=== PATIENT | male | born 1945 | race Caucasian/White ===

== ENCOUNTER → 2016-10-28 | Emergency (ER) | payer OTHER ==
[~2016-10-28] MED LIST: MECLIZINE HCL 25 MG TABLET (FP) ONE; MECLIZINE HCL 25 MG TABLET (FP) PO ONE
[2016-10-28 12:31] VITALS: BMI 28.7
--- NOTE | 2016-10-28 13:00 | PDOC ---
History of Present Illness - History of Present Illness Initial Comments: 10/28/16 13:04 The patient is a 71 year old male, with a significant past medical history of diabetes, who presents to the emergency department with right arm pain, dizziness and intermittent blurred vision with exertion for about a month. He states he woke up this morning when the right arm pain radiated to the right side of his neck to his posterior neck, which prompted him to come to the ED. The patient adds that he develops the pain in his right arm and neck after walking about a mile which he reports is new. He denies any chest pain at this time, however, reports dull, intermittent pain to his chest with exertion. He denies arm numbness to tingling. He also reports feeling dizzy which he describes as: room spinning feeling as if im drunk. He reports his vision becomes intermittently blurry, one eye at a time, which is alleviated when he closes one eye for a short period of time. He denies chest pain, shortness of breath, headache. He denies fever, chills, nausea, vomit, diarrhea and constipation. He denies dysuria, frequency, urgency and hematuria. Allergies: NKDA PCP - Dr. Osborne <Delaney Bush - Last Filed: 10/28/16 14:01> <Marina Felipe - Last Filed: 10/28/16 18:16> - General Chief Complaint: Lightheaded Stated Complaint: DIZZINESS, BODY ACHE Time Seen by Provider: 10/28/16 12:46 Past History <Delaney Bush - Last Filed: 10/28/16 14:01> - Past Medical History Diabetes: Yes GI Disorders: Yes (GERD, ULCER) HTN: Yes - Surgical History Appendectomy: Yes Cholecystectomy: Yes - Psycho/Social/Smoking Cessation Hx Anxiety: No Suicidal Ideation: No Smoking History: Former smoker Have you smoked in the past 12 months: No If you are a former smoker, when did you quit?: 38 YRS Information on smoking cessation initiated: No Hx Alcohol Use: Yes (SOCIAL) Drug/Substance Use Hx: No Substance Use Type: None <Marina Felipe - Last Filed: 10/28/16 18:16> - Past Medical History Allergies/Adverse Reactions: Allergies Allergy/AdvReac Type Severity Reaction Status Date / Time No Known Allergies Allergy Verified 10/28/16 12:31 Home Medications: Ambulatory Orders Fluticasone Prop 0.05% Nasal [Flonase -] 1 - 2 spray NS DAILY 01/11/16 Glipizide [Glipizide ER] 5 mg PO DAILY 01/11/16 Metformin HCl 1,000 mg PO DAILY 01/11/16 Ranitidine HCl [Zantac] 150 mg PO DAILY 01/11/16 Simvastatin [Zocor] 10 mg PO HS 01/11/16 Review of Systems - Review of Systems Able to Perform ROS?: Yes Comments:: 10/28/16 13:05 GENERAL/CONSTITUTIONAL: No fever or chills. No weakness. HEAD, EYES, EARS, NOSE AND THROAT: (+) intermittent blurred vision. No ear pain or discharge. No sore throat. CARDIOVASCULAR: No chest pain or shortness of breath. RESPIRATORY: No cough, wheezing, or hemoptysis. GASTROINTESTINAL: No nausea, vomiting, diarrhea or constipation. GENITOURINARY: No dysuria, frequency, or change in urination. MUSCULOSKELETAL: (+) right arm pain radiating to neck. No joint or muscle swelling or pain. No back pain. SKIN: No rash NEUROLOGIC: (+) vertigo, No headache, loss of consciousness, or change in strength/sensation. ENDOCRINE: No increased thirst. No abnormal weight change. HEMATOLOGIC/LYMPHATIC: No anemia, easy bleeding, or history of blood clots. ALLERGIC/IMMUNOLOGIC: No hives or skin allergy. <Delaney Bush - Last Filed: 10/28/16 14:01> *Physical Exam - Vital Signs Last Vital Signs Temp Pulse Resp BP Pulse Ox 70 20 117/72 98 10/28/16 12:27 10/28/16 12:27 10/28/16 12:27 10/28/16 12:27 <Delaney Bush - Last Filed: 10/28/16 14:01> - Vital Signs Last Vital Signs Temp Pulse Resp BP Pulse Ox 70 20 117/72 98 10/28/16 12:27 10/28/16 12:27 10/28/16 12:27 10/28/16 12:27 - Physical Exam Comments: GENERAL: Awake, alert, and fully oriented, in no acute distress HEAD: No signs of trauma EYES: PERRLA, EOMI, sclera anicteric, conjunctiva clear ENT: Auricles normal inspection, hearing grossly normal, nares patent, oropharynx clear without exudates. Moist mucosa NECK: Normal ROM, supple, no lymphadenopathy, JVD, or masses LUNGS: Breath sounds equal, clear to auscultation bilaterally. No wheezes, and no crackles HEART: Regular rate and rhythm, normal S1 and S2, no murmurs, rubs or gallops ABDOMEN: Soft, nontender, normoactive bowel sounds. No guarding, no rebound. No masses EXTREMITIES: Normal range of motion, no edema. No clubbing or cyanosis. No cords, erythema, or tenderness NEUROLOGICAL: Cranial nerves II through XII grossly intact. Normal speech, normal gait SKIN: Warm, Dry, normal turgor, no rashes or lesions noted. <Marina Felipe - Last Filed: 10/28/16 18:16> Heart Score/ECG Review - History History: Slightly suspicious - Electrocardiogram EKG: Normal - Age Age: >/= 65 - Risk Factors Risk Factors Heart Score: Yes Hx Hypercholesterolemia, Yes Hx Diabetes Based on the list above the patient has:: 1-2 risk factors - Troponin Troponin: </= normal limit - Score Heart Score - Total: 3 - ECG Impressions Comment:: EKG read 13:10- NSR 67 bpm, no acute ST/T changes <Marina Felipe - Last Filed: 10/28/16 18:16> ED Treatment Course - LABORATORY CBC & Chemistry Diagram: 10/28/16 13:15 10/28/16 13:15 - RADIOLOGY Radiograph Interpretation: 10/28/16 14:01 CXR was read by Dr. Rosario at 13:49 Impression: Large heart. hiatal hernia. no acute pathology. no change of an adverse nature since 01/11/16. <Delaney Bush - Last Filed: 10/28/16 14:01> - LABORATORY CBC & Chemistry Diagram: 10/28/16 13:15 10/28/16 13:15 <Marina Felipe - Last Filed: 10/28/16 18:16> Medical Decision Making - Medical Decision Making Pt with RUE pain that radiates from the posterior neck. This may be an atypical presentation of ACS, however, he notes that he takes a nightly walk, and typically the pain starts partway into his walk, but improves as he goes, does not worsen. 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 He had an episode of dizziness earlier today, resolved spontaneously. Unclear etiology at this point. HEART score is low, will discharge home with close outpatient f/u. <Marina Felipe - Last Filed: 10/28/16 18:16> *DC/Admit/Observation/Transfer - Attestations Scribe Attestion: 10/28/16 13:06 Documentation prepared by Delaney Bush, acting as medical interpreter for Marina Felipe MD, <Delaney Bush - Last Filed: 10/28/16 14:01> - Discharge Dispostion Admit: No <Marina Felipe - Last Filed: 10/28/16 18:16> Diagnosis at time of Disposition: Arm pain, right - Discharge Dispostion Disposition: HOME Condition at time of disposition: Stable - Patient Instructions Printed Discharge Instructions: DI for Arm Pain Additional Instructions: Follow up with your primary care physician THIS WEEK. If you develop chest pain , shortness of breath, or any other concerns, return to the ER immediately.
[2016-10-28 13:24] LABS: BASOPHIL 0.8 % (0-2.0); EOSINOPHIL 4.2 % (0-4.5); MCH 24.5 pg (25.7-33.7); MCHC 31.7 g/dl (32.0-35.9); MEAN CELL VOLUME 77.3 fl (80-96); MEAN PLT VOLUME 7.9 fl (7.5-11.1); NEUTROPHILS 65.2 % (42.8-82.8); PLATELET COUNT 296 K/MM3 (134-434); RDW 17.5 % (11.9-15.9); WHITE BLOOD COUNT 8.8 K/mm3 (4.0-10.0)
[2016-10-28 13:39] LABS: INR 0.99 (0.82-1.09); PROTHROMBIN TIME (PATIENT) 10.9 SEC (9.98-11.88)
[2016-10-28 14:02] LABS: ALBUMIN 3.6 g/dl (3.4-5.0); ANION GAP 9 (8-16); BILIRUBIN,TOTAL 0.3 mg/dL (0.2-1.0); CALCIUM 8.6 mg/dL (8.5-10.1); CO2 27 mmol/L (21-32); COCKROFT - GAULT 60.29; CREATININE 1.4 mg/dL (0.7-1.3); GLUCOSE,RANDOM 147 mg/dL (74-106); SGOT/AST 25 U/L (15-37); SGPT/ALT 25 U/L (12-78); TOT PROT 7.2 g/dl (6.4-8.2)
[2016-10-28 14:06] LABS: ALK PHOS 94 U/L (45-117); TROPONIN I < 0.02 ng/ml (0.00-0.05)
--- NOTE | 2016-10-28 16:23 | EKG ---
Test Reason : Blood Pressure : / mmHG Vent. Rate : 067 BPM Atrial Rate : 067 BPM P-R Int : 140 ms QRS Dur : 080 ms QT Int : 394 ms P-R-T Axes : 053 -33 024 degrees QTc Int : 416 ms NORMAL SINUS RHYTHM LEFT AXIS DEVIATION ABNORMAL ECG WHEN COMPARED WITH ECG OF 11-JAN-2016 21:37, NO SIGNIFICANT CHANGE WAS FOUND Confirmed by PAULO LAWRENCE MD ([id number]) on 10/28/2016 4:23:26 PM Referred By: EMERSON Confirmed By:PAULO LAWRENCE MD
[2016-10-28 16:52] VITALS: BP 118/73; PULSE 74; TEMP 98.6
== END | disposition home or self-care (01) ==
LOC: JER 12:25
DX: M79.601 Pain in right arm (principal); I10 Essential (primary) hypertension; E11.9 Type 2 diabetes mellitus without complications; Z79.84 Long term (current) use of oral hypoglycemic drugs; K21.9 Gastro-esophageal reflux disease without esophagitis
CPT/HCPCS: 36415; 71010-TC; 72050-TC; 80053; 82550; 82553; 84484; 85025; 85610; 93005; 93010; 99283-25

== ENCOUNTER 2018-07-27 13:22 | Emergency (ER) | payer OTHER ==
[2018-07-27 13:27] VITALS: BMI 27.5
--- NOTE | 2018-07-27 13:41 | PDOC ---
History of Present Illness - General Chief Complaint: Blood Pressure Problem Stated Complaint: HYPOTENSIVE Time Seen by Provider: 07/27/18 13:40 - History of Present Illness Initial Comments: 73yo M with PMH of HTN, DM, chronic R. arm pain presenting with hypotension. Patient reports he was feeling poorly two weeks ago, went to an urgent care, and was diagnosed with the flu. He was treated with tamiflu, but was still feeling poorly about 5 days ago and presented to his primary care doctor's office. Patient was given antibiotics (he does not know which) and finished the course today. He takes his blood pressure every day and has noticed it to be lower than his usual 120s systolic. When he was at his PCP office, he remarke upon his lower blood pressures and was instructed to check his blood pressure before taking his BP medicine. Patient was not told which BP measurement should necessitate taking lisinopril. His blood pressure last night was 127/77 and he took his lisinopril. This morning about a half hour after waking up and drinking coffee, patient noted his BP to be 77/47. He checked it several times and noted it to be lower than his normal and decided to come to the ED. Around that time, he also took his diabetes medicines, metformin and glipizide. He checks his glucose everyday and notes to have had 4-5 episodes of hypoglycemia for which he eats a snack. Patient endorses a 11 lb weight loss over the past month and a half which he attributes to a healthier diet. He has been making efforts to cook more at home for his . Endorses fever of 103 and 100 one week ago, as well as a resolving dry cough. He continues to have his chronic R. arm pain which radiates to his chest. Patient reports that he has had an extensive workup in the past year including stress test, ECHO, and cardiac catheterization which were all "normal." He remarks that he currently feels lightheaded. Denies chills, chest pain, shortness of breath, or abdominal pain. Past History - Past Medical History Allergies/Adverse Reactions: Allergies Allergy/AdvReac Type Severity Reaction Status Date / Time No Known Allergies Allergy Verified 07/27/18 13:28 Home Medications: Ambulatory Orders Fluticasone Prop 0.05% Nasal [Flonase -] 1 - 2 spray NS DAILY 01/11/16 Glipizide [Glipizide ER] 5 mg PO DAILY 01/11/16 Ranitidine HCl [Zantac] 150 mg PO DAILY 01/11/16 Simvastatin [Zocor] 10 mg PO HS 01/11/16 metFORMIN HCL [Metformin HCl] 1,000 mg PO DAILY 01/11/16 COPD: No Diabetes: Yes GI Disorders: Yes (GERD, ULCER) Disorders: Yes (enlarged prostate) HTN: Yes Hypercholesterolemia: Yes - Surgical History Appendectomy: Yes Cholecystectomy: Yes - Suicide/Smoking/Psychosocial Hx Smoking History: Never smoked Have you smoked in the past 12 months: No If you are a former smoker, when did you quit?: 38 YRS Hx Alcohol Use: Yes (SOCIAL) Drug/Substance Use Hx: No Substance Use Type: None Review of Systems - Review of Systems Comments:: Constitutional: +fever, no chills HEENT: no throat pain, no dysphagia Cardiovascular: no chest pain, no palpitations Respiratory: no cough, no shortness of breath Gastrointestinal: no nausea, no vomiting Genitourinary: no dysuria, no frequency Musculoskeletal: no back pain, + R. arm pain Skin: no rash, no itching Neurologic: no headache, +lightheaded *Physical Exam - Vital Signs Last Vital Signs Temp Pulse Resp BP Pulse Ox 97.3 F L 75 18 108/56 L 99 07/27/18 13:24 07/27/18 13:24 07/27/18 13:24 07/27/18 13:24 07/27/18 13:24 - Physical Exam Comments: General: Awake, alert, and fully oriented, in no acute distress, pleasant Head: No signs of trauma Eyes: EOMI, sclera anicteric ENT: Moist mucus membranes Neck: Normal ROM, supple Lungs: Lungs clear, Normal breath sounds Cardio: Regular rhythm, S1 and S2 present Abdomen: Soft, nontender. No guarding, no rebound, no masses Extremities: Normal range of motion, Distal pulses present SKIN: Warm, Dry, normal turgor Neurologic: Cranial nerves II through XII grossly intact. Normal speech. Moderate Sedation - Procedure Monitoring Vital Signs: Procedure Monitoring Vital Signs Temperature 97.3 F L 07/27/18 13:24 Pulse Rate 75 07/27/18 13:24 Respiratory Rate 18 07/27/18 13:24 Blood Pressure 108/56 L 07/27/18 13:24 O2 Sat by Pulse Oximetry (%) 99 07/27/18 13:24 ED Treatment Course - LABORATORY CBC & Chemistry Diagram: 07/27/18 14:57 07/27/18 14:57 Medical Decision Making - Medical Decision Making 73yo M with PMH of HTN, DM, chronic R. arm pain presenting with hypotension. Noted by Nurse Clay to be hypoglycemia at 43. Given orange juice. Patient's lightheadedness resolved. Repeat glc 80 DDX including but not limited to iatrogenic, anemia, infection, dehydration, orthostatic hypotension CBC, CMP, Tpn, EKG, CXR, UA, UCx 07/27/18 15:12 Patient had large lunch 5pm Glucose 143 6pm Glucose 145 No anemia or leukocytosis Tpn normal [id number] Cr elevated at 1.7 which is at patient's baseline UA negative for infection CXR without acute pathology EKG: rate 70, Qtc 416, NSR Given patient's recent weight loss, he may no longer require all his current home medicines. Patient's hypoglycemia likely due to the glipizide that he took this morning. He was instructed to eat and repeat glucose measurements were stable. Patient's hypoglycemia and hypertension likely due to iatrogenic reasons as well. Instructed to check his BP and taking home lisinopril if systolic>140. Also told patient to check glucose more frequently and not take glipizide until his PCP says otherwise. Patient will call his doctor tomorrow. *DC/Admit/Observation/Transfer Diagnosis at time of Disposition: Hypotension due to medication, Hypoglycemia - Discharge Dispostion Disposition: HOME Condition at time of disposition: Stable - Referrals Referrals: Nithin Reeves [Primary Care Provider] - - Patient Instructions Printed Discharge Instructions: DI for Hypoglycemia Additional Instructions: You came into the ED for low blood pressure. We checked your blood work, EKG, and an Xray. Your glucose levels were low while in the ED which is likely due to the diabetes medicine you have been taking. 1. Check your blood sugar every 2-3 hours when you get home. If it stays persistently low, below 80, despite eating/drinking, please return to the ED. 2. Take metformin as you regularly do. Stop taking glipizide until your doctor instructs otherwise. 3. Check your blood pressure before taking blood pressure medicine. If the systolic (top number) is over 140, you can take your blood pressure medicine. 4. Follow up with your primary care physician. You made need adjustments made to your medication. Call and make an appointment. Your care is not complete until you do so. A copy of your lab work and EKG were given to you. Bring this to your appointment. Immediate medical attention is required if you have: fever, weakness, incontinence, you pass out, or have any new or concerning symptoms. If you think you are having an emergency, call for emergency medical services or present to the emergency department right away. - Post Discharge Activity
--- NOTE | 2018-07-27 13:55 | PDOC ---
Attending Attestation - HPI HPI: 07/27/18 14:44 The patient is a 73 year old male, with a significant PMH of DM, HTN and chronic right arm pain, who presents to the emergency department for evaluation of hypotension. Patient states he takes his BP a couple of times a day and the last 20 days or so it has been low. The patient states he went to urgent care a week ago for cold like symptoms and was told he had the flu and was prescribed tamiflu. The patient reports days later he went to see his PCP as he still felt ill, was diagnosed with bronchitis which has improved and his cough is no longer productive. Patient was informed by a nurse at PCP office to take BP before taking medications but was not informed what BP he should take medications at. Patient took medication before bed and took BP at work this morning which was 77/47 which prompted his arrival to the ED. Patient states he feels lightheaded and has a minor headache. Of note, patient experienced 4-5 hypoglycemic episodes over the last few months. The patient denies shortness of breath. Denies fever, nausea, vomit, diarrhea and constipation. Denies dysuria, frequency, urgency and hematuria. Allergies: NKA Social history: None reported PCP: Dr. Reeves <Brittney Burdick - Last Filed: 07/27/18 14:46> - Resident Resident Name: Marina Richardson - ED Attending Attestation I have performed the following: I have examined & evaluated the patient, The case was reviewed & discussed with the resident, I agree w/resident's findings & plan, Exceptions are as noted - Physicial Exam PE: GENERAL: Awake, alert, and fully oriented, in no acute distress HEAD: No signs of trauma EYES: PERRLA, EOMI, sclera anicteric, conjunctiva clear ENT: Auricles normal inspection, hearing grossly normal, nares patent, oropharynx clear without exudates. Moist mucosa NECK: Normal ROM, supple, no lymphadenopathy, JVD, or masses LUNGS: Breath sounds equal, clear to auscultation bilaterally. No wheezes, and no crackles HEART: Regular rate and rhythm, normal S1 and S2, no murmurs, rubs or gallops ABDOMEN: Soft, nontender, normoactive bowel sounds. No guarding, no rebound. No masses EXTREMITIES: Normal range of motion, no edema. No clubbing or cyanosis. No cords, erythema, or tenderness NEUROLOGICAL: Cranial nerves II through XII grossly intact. Normal speech, normal gait. Motor and sensation intact SKIN: Warm, Dry, normal turgor, no rashes or lesions noted. - Medical Decision Making 07/27/18 14:50 Will send HbA1C in addition to his labs. Will check routine labs, however, I suspect that the drop in his BP and glucose are related to his recent intentional weight loss. He may now require less medication than before. 07/27/18 15:32 Rpt BGM is 80. I went to patient's room to give him a turkey sandwich, however, his had returned with a plate of food from the cafe. He felt a little sweaty briefly, but is feeling better now. Will cont to monitor. <Marina Felipe - Last Filed: 07/27/18 15:42> Attestations - Attestations 07/27/18 14:44 Documentation prepared by Brittney Burdick, acting as medical laboratory technician for Marina Felipe MD. <Brittney Burdick - Last Filed: 07/27/18 14:46>
[2018-07-27 15:02] LABS: URINE APPEARANCE CLEAR; URINE BILIRUBIN NEGATIVE (<2.0 mg/dL); URINE COLOR YELLOW; URINE GLUCOSE (UA) NEGATIVE (NEGATIVE); URINE KETONE NEGATIVE (NEGATIVE); URINE LEUK ESTERASE NEGATIVE (NEGATIVE); URINE NITRITE NEGATIVE (NEGATIVE); URINE PROTEIN NEGATIVE (NEGATIVE); URINE UROBILINOGEN NEGATIVE mg/dL (0.2-1.0)
[2018-07-27 15:13] LABS: BASO % 0.9 % (0-2.0); EOS % 2.3 % (0-4.5); HEMATOCRIT 39.1 % (35.4-49); HEMOGLOBIN 12.9 GM/dL (11.7-16.9); LYMPH % 17.9 % (8-40); MCH 28.2 pg (25.7-33.7); MCHC 32.9 g/dl (32.0-35.9); MEAN CELL VOLUME 85.5 fl (80-96); MEAN PLT VOLUME 7.8 fl (7.5-11.1); MONO % 11.4 % (3.8-10.2); NEUT % 67.5 % (42.8-82.8); PLATELET COUNT 433 K/MM3 (134-434); RBC 4.57 M/mm3 (4.00-5.60); RDW 15.2 % (11.9-15.9); WHITE BLOOD COUNT 8.7 K/mm3 (4.0-10.0)
[2018-07-27 15:27] LABS: ALBUMIN 3.4 g/dl (3.4-5.0); ALK PHOS 63 U/L (45-117); ANION GAP 9 MMOL/L (8-16); BILIRUBIN,TOTAL 0.2 mg/dL (0.2-1); BLOOD UREA NITROGEN 30 mg/dL (7-18); CALCIUM 8.8 mg/dL (8.5-10.1); CHLORIDE 108 mmol/L (98-107); CO2 23 mmol/L (21-32); CREATININE 1.7 mg/dL (0.55-1.3); GLUCOSE,RANDOM 61 mg/dL (74-106); POTASSIUM 5.1 mmol/L (3.5-5.1); SGOT/AST 20 U/L (15-37); SGPT/ALT 18 U/L (13-61); SODIUM 140 mmol/L (136-145); TOT PROT 6.9 g/dl (6.4-8.2)
[2018-07-27 18:10] VITALS: BP 111/69; PULSE 69; TEMP 98.1
--- NOTE | 2018-07-28 10:46 | EKG ---
Test Reason : Blood Pressure : / mmHG Vent. Rate : 070 BPM Atrial Rate : 070 BPM P-R Int : 138 ms QRS Dur : 072 ms QT Int : 386 ms P-R-T Axes : 034 -36 036 degrees QTc Int : 416 ms NORMAL SINUS RHYTHM LEFT AXIS DEVIATION ABNORMAL ECG WHEN COMPARED WITH ECG OF 28-OCT-2016 13:02, NO SIGNIFICANT CHANGE WAS FOUND Confirmed by FLAKITA DUMONT MD ([id number]) on 07/28/2018 10:46:05 AM Referred By: Confirmed By:FLAKITA DUMONT MD
== END 2018-07-27 18:10 | disposition home or self-care (01) ==
LOC: JER 13:22
DX: I95.2 Hypotension due to drugs (principal); E11.649 Type 2 diabetes mellitus with hypoglycemia without coma; Z79.84 Long term (current) use of oral hypoglycemic drugs; M79.601 Pain in right arm; G89.29 Other chronic pain
CPT/HCPCS: 36415; 71046-TC-FY; 80053; 81003; 82962; 83036; 84484; 85025; 87086; 93005; 93010; 99283-25

== ENCOUNTER 2020-11-18 19:35 | Emergency (ER) | payer OTHER ==
[2020-11-18 19:44] VITALS: PULSE 78; TEMP 97; BMI 27.8
[2020-11-18 21:01] LABS: BASO % 0.6 % (0-2.0); EOS % 5.1 % (0-4.5); HEMATOCRIT 39.2 % (35.4-49); HEMOGLOBIN 12.9 GM/dL (11.7-16.9); LYMPH % 17.8 % (8-40); MCH 28.8 pg (25.7-33.7); MEAN CELL VOLUME 87.1 fl (80-96); MEAN PLT VOLUME 7.6 fl (7.5-11.1); MONO % 11.2 % (3.8-10.2); NEUT % 65.3 % (42.8-82.8); PLATELET COUNT 289 10^3/uL (134-434); RDW 15.3 % (11.9-15.9); WHITE BLOOD COUNT 6.7 K/mm3 (4.0-10.0)
[2020-11-18 21:08] LABS: INR 0.94 (0.83-1.09); PROTHROMBIN TIME (PATIENT) 11.6 SEC (9.7-13.0)
[2020-11-18 21:11] LABS: ACTIVATED PTT 25.6 SECONDS (25.2-36.5)
[2020-11-18 21:29] LABS: CHLORIDE 108 mmol/L (98-107); SODIUM 143 mmol/L (136-145)
[2020-11-18 21:31] LABS: CALCIUM 8.6 mg/dL (8.5-10.1)
[2020-11-18 21:33] LABS: ALBUMIN 3.6 g/dl (3.4-5.0); ANION GAP 6 MMOL/L (8-16); BLOOD UREA NITROGEN 31.8 mg/dL (7-18); CO2 29 mmol/L (21-32); GLUCOSE,RANDOM 186 mg/dL (74-106)
[2020-11-18 21:35] LABS: CREATININE 1.7 mg/dL (0.55-1.3); SGOT/AST 17 U/L (15-37); SGPT/ALT 25 U/L (13-61)
[2020-11-18 21:36] LABS: BILIRUBIN,TOTAL 0.2 mg/dL (0.2-1)
[2020-11-18 21:37] LABS: TOT PROT 6.7 g/dl (6.4-8.2)
[2020-11-18 21:39] LABS: ALK PHOS 83 U/L (45-117)
[2020-11-18] MEDS ORDERED: SODIUM POLYSTYRENE SULFONATE 15 GM/60 ML BOTTLE PO ONE (21:40)
[2020-11-18] MEDS ORDERED: SODIUM POLYSTYRENE SULFONATE 15 GM/60 ML BOTTLE ONE (21:45)
[2020-11-18 21:51] VITALS: BP 120/78
== END 2020-11-18 21:50 | disposition home or self-care (01) ==
LOC: JER 19:35
DX: E87.8 Other disorders of electrolyte and fluid balance, not elsewhere classified (principal); R07.9 Chest pain, unspecified
CPT/HCPCS: 36415; 71045-TC-FY; 80053; 84484; 85025; 85610; 85730; 93005; 93010; 99285-25